=== PATIENT | male | born 1975 | race African-American/Black ===

== ENCOUNTER 2021-08-11 02:21 | Emergency (ER) | payer MEDICAID ==
[~2021-08-11] VITALS: Ht 167.6 cm; Wt 139.0 kg
[~2021-08-11 02:21] MED LIST: [UNRECOGNIZED DRUG - REMARK]; [UNRECOGNIZED DRUG - REMARK]
[2021-08-11] MEDS ORDERED: IBUPROFEN 600MG TABLET PO STA (03:04)
[2021-08-11 03:23] LABS: BASOPHILS % 0.6 % (0.0-2.0); EOSINOPHILS % 1.3 % (0.0-5.0); HEMATOCRIT. 41.8 % (42.0-52.0); MEAN CORPUSCULAR HEMOGLOBIN 28.2 pg (28.0-32.0); MEAN CORPUSCULAR VOLUME 84.4 fL (80.0-94.0); MEAN PLATELET VOLUME 8.7 fl (7.4-10.4); MONOCYTES % 6.6 % (2.0-8.0); NEUTROPHILS % 79.5 % (40.0-76.0); PLATELET 157 x1000/uL (130-400); RED BLOOD CELL COUNT 4.96 mill/uL (4.7-6.1); RED CELL DISTRIBUTION WIDTH 14.4 % (11.6-14.6)
[2021-08-11 03:27] LABS: CHLORIDE 104 mEq/L (98-107)
[2021-08-11] MEDS ORDERED: FUROSEMIDE 40MG TABLET PO ONE (04:30)
[2021-08-11 05:31] VITALS: BP 126/54
== END 2021-08-11 05:32 | disposition home or self-care (01) ==
LOC: ER 02:33
DX: R60.9 Edema, unspecified (principal); I11.0 Hypertensive heart disease with heart failure; I50.9 Heart failure, unspecified; E11.9 Type 2 diabetes mellitus without complications
CPT/HCPCS: 36415; 71045; 80053; 83880; 85025; 93005; 99285

== ENCOUNTER 2021-12-11 11:53 | Inpatient (IN) | payer MEDICAID, OTHER ==
[~2021-12-11] VITALS: Ht 177.8 cm; Wt 132.9 kg
[2021-12-11] MEDS ORDERED: CEFTRIAXONE 1 G PREMIX 50 ML IV ONE (12:45)
[2021-12-11] MEDS ORDERED: VANCOMYCIN 1G PREMIX 200 ML IV ONE (12:45)
[2021-12-11 13:11] LABS: BASOPHILS % 0.5 % (0.0-2.0); EOSINOPHILS % 0.1 % (0.0-5.0); HEMOGLOBIN. 11.4 g/dL (14.0-18.0); LYMPHOCYTES % 16.2 % (20.0-50.0); MEAN CORPUSCULAR HEMOGLOBIN 25.1 pg (28.0-32.0); MEAN CORPUSCULAR VOLUME 79.2 fL (80.0-94.0); MEAN PLATELET VOLUME 8.5 fl (7.4-10.4); MONOCYTES % 8.1 % (2.0-8.0); NEUTROPHILS % 75.1 % (40.0-76.0); PLATELET 170 x1000/uL (130-400); RED BLOOD CELL COUNT 4.55 mill/uL (4.7-6.1); RED CELL DISTRIBUTION WIDTH 18.4 % (11.6-14.6)
[2021-12-11 13:22] LABS: CHLORIDE 94 mEq/L (98-107)
[2021-12-11] MEDS ORDERED: APIXABAN 5 MG TABLET PO SCH (17:00)
[2021-12-11] MEDS ORDERED: PIPERACILLIN/TAZOBACTAM 3.375GM/50ML PREMIX IV ONE (18:30)
[2021-12-11] MEDS ORDERED: DEXTROSE 50% WATER 50ML SYRINGE IV ONE (18:30)
[2021-12-11] MEDS ORDERED: CLINDAMYCIN 900 MG in DEXTROSE 5% WATER 50 ML IV ONE (18:30)
[2021-12-11] MEDS ORDERED: MORPHINE SULFATE 4 MG/ML CPJ (NOT FOR IM USE) IV ONE (18:30)
[2021-12-11] MEDS ORDERED: SODIUM CHLORIDE 0.9% 1,000 ML IV ONE (18:30)
[2021-12-11] MEDS ORDERED: PIPERACILLIN/TAZ 3.375G PREMIX 50 ML IV NR (18:45)
[2021-12-11] MEDS ORDERED: CLINDAMYCIN 900 MG PREMIX 50 ML IV SCH (19:00)
[2021-12-11] MEDS ORDERED: ONDANSETRON HCL 4MG/2ML INJ IV PRN (19:15)
[2021-12-11] MEDS ORDERED: CLONIDINE 0.1MG TABLET PO PRN (19:15)
[2021-12-11] MEDS ORDERED: ACETAMINOPHEN 325MG TABLET PO PRN (19:15)
[2021-12-11] MEDS ORDERED: CLINDAMYCIN IN 0.9 % SOD CHLOR 50 ML IV SCH (19:49)
[2021-12-11] MEDS ORDERED: SODIUM CHLORIDE 23.4% 154 MEQ in DEXT 10% WATER 961.5 ML IV ONE (20:15)
[2021-12-11 20:55] LABS: INR 1.9; PROTHROMBIN TIME 19.2 sec (9.6-11.0)
[2021-12-11] MEDS ORDERED: IOHEXOL-350 100 ML BOTTLE ONE (23:49)
[2021-12-11 23:57] LABS: CLARITY URINE CLOUDY (CLEAR); COLOR URINE ORANGE (YELLOW); KETONES URINE NEGATIVE (NEGATIVE); LEUKOCYTE ESTERASE URINE 1+ (NEGATIVE); NITRITE URINE POSITIVE (NEGATIVE); OCCULT BLOOD URINE NEGATIVE (NEGATIVE); PH URINE 5.5 (4.5-8.0); PROTEIN URINE 1+ (NEGATIVE); SPECIFIC GRAVITY URINE 1.023 (1.005-1.030)
[2021-12-12] VITALS (7 sets, daily range): BP systolic 104–115; BP diastolic 59–74
[2021-12-12 00:19] LABS: *AMPHETAMINES SCREEN URINE NEGATIVE (NEGATIVE); *BARBITURATES SCREEN URINE NEGATIVE (NEGATIVE); *BENZODIAZEPINES SCREEN URINE NEGATIVE (NEGATIVE)
[2021-12-12 00:20] LABS: *COCAINE SCREEN URINE NEGATIVE (NEGATIVE); METHADONE URINE SCREEN NEGATIVE (NEGATIVE); OPIATES URINE SCREEN NEGATIVE (NEGATIVE); PHENCYCLIDINE URINE SCREEN NEGATIVE (NEGATIVE)
[2021-12-12 00:21] LABS: CANNABINOID URINE SCREEN PRESUMTIVE POSITIVE (NEGATIVE)
[2021-12-12] MEDS: HYDROCODONE/ACETAMINOPHEN 10/325MG TABLET PO PRN ×2 (00:27→08:27)
[2021-12-12] MEDS ORDERED: [UNRECOGNIZED DRUG - REMARK] (01:42)
[2021-12-12] MEDS ORDERED: [UNRECOGNIZED DRUG - REMARK] (01:42)
[2021-12-12 07:29] LABS: BASOPHILS % 0.6 % (0.0-2.0); EOSINOPHILS % 0.1 % (0.0-5.0); HEMOGLOBIN. 10.4 g/dL (14.0-18.0); LYMPHOCYTES % 16.5 % (20.0-50.0); MEAN CORPUSCULAR HEMOGLOBIN 24.8 pg (28.0-32.0); MEAN CORPUSCULAR VOLUME 78.7 fL (80.0-94.0); MEAN PLATELET VOLUME 8.9 fl (7.4-10.4); MONOCYTES % 10.3 % (2.0-8.0); NEUTROPHILS % 72.5 % (40.0-76.0); PLATELET 155 x1000/uL (130-400); RED BLOOD CELL COUNT 4.19 mill/uL (4.7-6.1); RED CELL DISTRIBUTION WIDTH 18.7 % (11.6-14.6)
[2021-12-12 07:46] LABS: CHLORIDE 92 mEq/L (98-107)
[2021-12-12] MEDS ORDERED: FUROSEMIDE 40MG/4ML VIAL IVP SCH (09:00)
[2021-12-12] MEDS ORDERED: SODIUM POLYSTYRENE SULFONATE 15 G/60 ML BOT PO NR (10:15)
[2021-12-12 10:42] LABS: BG BASE EXCESS -7.9 mmol/L (-2.0-2.0); BG CARBOXYHEMOGLOBIN 0.8 % (0.5-1.5); BG DEOXYHEMOGLOBIN 7.5 % (0.0-5.0); BG FRACTION INSPIRED OXYGEN 21; BG HCO3 ACT 15.3 mmol/L (22.0-26.0); BG METHEMOGLOBIN 0.3 % (0.0-1.5); BG OXYGEN SATURATION 92.4 % (92.0-98.5); BG OXYHEMOGLOBIN 91.4 % (94.0-97.0); BG PCO2 24.9 mmHg (35.0-45.0); BG PH 7.405 (7.350-7.450); BG PO2 66.2 mmHg (75.0-100.0); BG SAMPLE SITE LEFT BRACHIAL; BG TOTAL HEMOGLOBIN 11.5 g/dL (12.0-18.0); BG VENT MODE ROOM AIR
[2021-12-12 18:02] LABS: CHLORIDE 91 mEq/L (98-107)
[2021-12-12 18:08] LABS: TOTAL IRON BINDING CAPACITY 370 ug/dL (250-450)
[2021-12-12 18:16] LABS: FOLIC ACID (FOLATE) SERUM 16.4 ng/mL (>5.38)
[2021-12-12] MEDS: ENOXAPARIN 80MG/0.8ML SYR SUBCUT SCH (18:42)
[2021-12-12] MEDS: FUROSEMIDE 40MG/4ML VIAL IVP SCH (19:00)
[2021-12-13] VITALS: BP 104/69
[2021-12-13 04:00] VITALS: BP 102/65
[2021-12-13 08:52] VITALS: BP 102/69
[2021-12-13] MEDS ORDERED: LIDOCAINE HCL/PF 1% 10 MG/ML 5ML VIAL ONE (09:09)
[2021-12-13] MEDS: FERROUS SULFATE 325MG TABLET PO SCH ×2 (10:05→17:07)
[2021-12-13] MEDS: FUROSEMIDE 40MG/4ML VIAL IVP SCH ×2 (10:06→17:07)
[2021-12-13] MEDS: ASCORBIC ACID 500 MG TABLET PO SCH (10:06)
[2021-12-13] MEDS ORDERED: IOHEXOL-350 100 ML BOTTLE ONE (11:26)
[2021-12-13] MEDS: IRON SUCROSE COMPLEX 100 MG/5 ML ML IV SCH (11:59)
[2021-12-13 12:00] VITALS: BP 105/56
[2021-12-13] MEDS: ENOXAPARIN 80MG/0.8ML SYR SUBCUT SCH (12:00)
[2021-12-13 13:15] LABS: BASOPHILS % 0.7 % (0.0-2.0); EOSINOPHILS % 0.3 % (0.0-5.0); HEMOGLOBIN. 10.1 g/dL (14.0-18.0); LYMPHOCYTES % 13.4 % (20.0-50.0); MEAN CORPUSCULAR HEMOGLOBIN 25.7 pg (28.0-32.0); MEAN CORPUSCULAR VOLUME 79.1 fL (80.0-94.0); MEAN PLATELET VOLUME 8.8 fl (7.4-10.4); NEUTROPHILS % 76.6 % (40.0-76.0); PLATELET 139 x1000/uL (130-400); RED BLOOD CELL COUNT 3.92 mill/uL (4.7-6.1); RED CELL DISTRIBUTION WIDTH 18.5 % (11.6-14.6)
[2021-12-13 13:19] LABS: INR 2.1; PROTHROMBIN TIME 21.1 sec (9.6-11.0)
[2021-12-13 13:20] LABS: CHLORIDE 92 mEq/L (98-107)
[2021-12-13 13:25] LABS: PHOSPHORUS 2.8 mg/dL (2.5-4.9)
[2021-12-13 13:30] LABS: HDL CHOLESTEROL 9 mg/dL (40-59)
[2021-12-13 13:34] LABS: LDL CHOLESTEROL 57 mg/dL (5-100)
[2021-12-13 13:42] LABS: TOTAL IRON BINDING CAPACITY 336 ug/dL (250-450)
[2021-12-13 14:16] LABS: HEPATITIS B SURFACE ANTIGEN NEGATIVE
[2021-12-13 14:18] LABS: FERRITIN 185 ng/mL (22-322)
[2021-12-13 15:03] LABS: VITAMIN B12 SERUM >2000 pg/mL pg/mL (211-911)
[2021-12-13 16:00] VITALS: BP 102/60
[2021-12-13 20:00] VITALS: BP 91/72
[2021-12-13] MEDS: DOCUSATE SODIUM 100MG CAPSULE PO PRN (20:22)
[2021-12-13] MEDS: LORAZEPAM 0.5MG TABLET PO PRN (20:22)
[2021-12-13] MEDS: HYDROCODONE/ACETAMINOPHEN 5/325MG TABLET PO PRN (20:22)
[2021-12-13] MEDS: IPRATROPIUM/ALBUTEROL 0.5-3(2.5)MG/3ML NEB HHN PRN (21:23)
[2021-12-13] MEDS: ENOXAPARIN 150MG/ML SYR SUBCUT SCH (21:50)
[2021-12-14] VITALS: BP 106/74
[2021-12-14 04:00] VITALS: BP 110/86
[2021-12-14 08:00] VITALS: BP_SYST 88; BP_SYST 92; BP_DIAS 44; BP_DIAS 53
[2021-12-14 08:25] LABS: BASOPHILS % 0.5 % (0.0-2.0); EOSINOPHILS % 0.5 % (0.0-5.0); HEMATOCRIT. 30.9 % (42.0-52.0); LYMPHOCYTES % 23.5 % (20.0-50.0); MEAN CORPUSCULAR HEMOGLOBIN 25.7 pg (28.0-32.0); MONOCYTES % 9.6 % (2.0-8.0); NEUTROPHILS % 65.9 % (40.0-76.0); PLATELET 150 x1000/uL (130-400); RED BLOOD CELL COUNT 3.91 mill/uL (4.7-6.1); RED CELL DISTRIBUTION WIDTH 18.5 % (11.6-14.6)
[2021-12-14 08:34] LABS: CHLORIDE 92 mEq/L (98-107)
[2021-12-14] MEDS: FUROSEMIDE 40MG/4ML VIAL IVP SCH ×2 (08:50→16:47)
[2021-12-14] MEDS: ASCORBIC ACID 500 MG TABLET PO SCH (08:50)
[2021-12-14] MEDS: FERROUS SULFATE 325MG TABLET PO SCH (08:50)
[2021-12-14] MEDS: ENOXAPARIN 150MG/ML SYR SUBCUT SCH ×2 (08:51→21:08)
[2021-12-14 08:54] LABS: PHOSPHORUS 2.7 mg/dL (2.5-4.9)
[2021-12-14] MEDS: IRON SUCROSE COMPLEX 100 MG/5 ML ML IV SCH (11:23)
[2021-12-14 12:00] VITALS: BP 100/65
[2021-12-14] MEDS ORDERED: NALOXONE HCL 0.4MG/ML VIAL IV PRN (14:45)
[2021-12-14 16:00] VITALS: BP 110/70
[2021-12-14] MEDS: CARVEDILOL 3.125 MG TABLET PO SCH (21:00)
[2021-12-15] VITALS: BP 103/66
[2021-12-15 08:00] VITALS: BP 120/76
[2021-12-15 08:08] LABS: HIV SCREEN 4G Non Reactive (Non Reactive)
[2021-12-15] MEDS: CARVEDILOL 3.125 MG TABLET PO SCH ×2 (08:43→21:10)
[2021-12-15] MEDS: LISINOPRIL 2.5MG TABLET PO SCH (08:43)
[2021-12-15] MEDS: ASCORBIC ACID 500 MG TABLET PO SCH (08:44)
[2021-12-15] MEDS: ENOXAPARIN 150MG/ML SYR SUBCUT SCH ×2 (08:44→21:09)
[2021-12-15] MEDS: FUROSEMIDE 40MG/4ML VIAL IVP SCH (08:44)
[2021-12-15] MEDS: IRON SUCROSE COMPLEX 100 MG/5 ML ML IV SCH (11:32)
[2021-12-15 12:00] VITALS: BP 109/66
[2021-12-15 12:06] LABS: BASOPHILS % 0.6 % (0.0-2.0); EOSINOPHILS % 0.3 % (0.0-5.0); HEMATOCRIT. 31.5 % (42.0-52.0); HEMOGLOBIN. 10.1 g/dL (14.0-18.0); LYMPHOCYTES % 13.9 % (20.0-50.0); MEAN CORPUSCULAR HEMOGLOBIN 25.5 pg (28.0-32.0); MEAN CORPUSCULAR VOLUME 79.8 fL (80.0-94.0); MEAN PLATELET VOLUME 9.1 fl (7.4-10.4); NEUTROPHILS % 78.2 % (40.0-76.0); PLATELET 156 x1000/uL (130-400); RED BLOOD CELL COUNT 3.95 mill/uL (4.7-6.1); RED CELL DISTRIBUTION WIDTH 19.1 % (11.6-14.6)
[2021-12-15 12:09] LABS: INR 1.7; PROTHROMBIN TIME 17.4 sec (9.6-11.0)
[2021-12-15 12:10] LABS: CHLORIDE 93 mEq/L (98-107)
[2021-12-15 12:16] LABS: PHOSPHORUS 2.5 mg/dL (2.5-4.9)
[2021-12-15 12:21] LABS: HAPTOGLOBIN <31.0 mg/dL (30-200); T4 FREE 0.91 ng/dL (0.76-1.46)
[2021-12-15] MEDS ORDERED: MAGNESIUM 2 G PREMIX 50 ML IV SCH (14:00)
[2021-12-15 16:00] VITALS: BP 96/54
[2021-12-15 16:20] LABS: SODIUM URINE RANDOM 12 mEq/L
[2021-12-15] MEDS ORDERED: FUROSEMIDE 40MG/4ML VIAL IVP SCH (17:15)
[2021-12-15 20:00] VITALS: BP 135/68
[2021-12-15] MEDS: LORAZEPAM 0.5MG TABLET PO PRN (21:09)
[2021-12-15] MEDS: HYDROCODONE/ACETAMINOPHEN 5/325MG TABLET PO PRN (21:10)
[2021-12-16] VITALS: BP 104/54
[2021-12-16] MEDS: LORAZEPAM 0.5MG TABLET PO PRN (03:31)
[2021-12-16 04:00] VITALS: BP 126/68
[2021-12-16] MEDS: FUROSEMIDE 40MG/4ML VIAL IVP SCH ×2 (06:22→17:23)
[2021-12-16 08:00] VITALS: BP 98/58
[2021-12-16] MEDS: LISINOPRIL 2.5MG TABLET PO SCH (08:38)
[2021-12-16] MEDS: CARVEDILOL 3.125 MG TABLET PO SCH ×2 (08:38→21:00)
[2021-12-16] MEDS: ASCORBIC ACID 500 MG TABLET PO SCH (08:50)
[2021-12-16] MEDS: ENOXAPARIN 150MG/ML SYR SUBCUT SCH ×2 (08:51→21:44)
[2021-12-16 12:00] VITALS: BP 103/50
[2021-12-16 16:00] VITALS: BP 124/68
[2021-12-16 20:00] VITALS: BP 100/66
[2021-12-17] VITALS: BP 107/76
[2021-12-17 04:00] VITALS: BP 113/70
[2021-12-17] MEDS: FUROSEMIDE 40MG/4ML VIAL IVP SCH ×2 (06:16→17:47)
[2021-12-17 06:28] LABS: BASOPHILS % 0.5 % (0.0-2.0); EOSINOPHILS % 0.3 % (0.0-5.0); HEMATOCRIT. 32.5 % (42.0-52.0); HEMOGLOBIN. 10.5 g/dL (14.0-18.0); LYMPHOCYTES % 21.6 % (20.0-50.0); MEAN CORPUSCULAR HEMOGLOBIN 25.8 pg (28.0-32.0); MEAN CORPUSCULAR VOLUME 79.5 fL (80.0-94.0); MONOCYTES % 7.1 % (2.0-8.0); NEUTROPHILS % 70.5 % (40.0-76.0); PLATELET 150 x1000/uL (130-400); RED BLOOD CELL COUNT 4.08 mill/uL (4.7-6.1); RED CELL DISTRIBUTION WIDTH 19.3 % (11.6-14.6)
[2021-12-17 06:37] LABS: INR 1.6; PROTHROMBIN TIME 16.1 sec (9.6-11.0)
[2021-12-17 07:52] LABS: CHLORIDE 91 mEq/L (98-107)
[2021-12-17 08:00] VITALS: BP 106/63
[2021-12-17 08:00] LABS: PHOSPHORUS 2.4 mg/dL (2.5-4.9)
[2021-12-17] MEDS: LISINOPRIL 2.5MG TABLET PO SCH (08:42)
[2021-12-17] MEDS: ASCORBIC ACID 500 MG TABLET PO SCH (08:56)
[2021-12-17] MEDS: ENOXAPARIN 150MG/ML SYR SUBCUT SCH ×2 (08:56→20:42)
[2021-12-17] MEDS: CARVEDILOL 3.125 MG TABLET PO SCH ×2 (08:56→21:00)
[2021-12-17] MEDS: ACETAMINOPHEN 325MG TABLET PO PRN (09:01)
[2021-12-17 12:00] VITALS: BP 114/60
[2021-12-17 16:00] VITALS: BP 110/67
[2021-12-17 20:00] VITALS: BP 103/69
[2021-12-18] VITALS: BP 101/73
[2021-12-18] MEDS: ACETAMINOPHEN 325MG TABLET PO PRN ×2 (03:49→15:25)
[2021-12-18 04:00] VITALS: BP 105/42
[2021-12-18] MEDS: FUROSEMIDE 40MG/4ML VIAL IVP SCH ×2 (06:18→16:25)
[2021-12-18 06:59] LABS: CHLORIDE 89 mEq/L (98-107)
[2021-12-18 07:04] LABS: PHOSPHORUS 2.5 mg/dL (2.5-4.9)
[2021-12-18 07:12] LABS: BASOPHILS % 0.6 % (0.0-2.0); EOSINOPHILS % 0.5 % (0.0-5.0); HEMATOCRIT. 31.8 % (42.0-52.0); HEMOGLOBIN. 10.2 g/dL (14.0-18.0); LYMPHOCYTES % 20.8 % (20.0-50.0); MEAN CORPUSCULAR HEMOGLOBIN 25.8 pg (28.0-32.0); MEAN CORPUSCULAR VOLUME 80.3 fL (80.0-94.0); MEAN PLATELET VOLUME 9.4 fl (7.4-10.4); MONOCYTES % 8.5 % (2.0-8.0); NEUTROPHILS % 69.6 % (40.0-76.0); PLATELET 142 x1000/uL (130-400); RED BLOOD CELL COUNT 3.96 mill/uL (4.7-6.1); RED CELL DISTRIBUTION WIDTH 19.7 % (11.6-14.6)
[2021-12-18 08:00] VITALS: BP 100/51
[2021-12-18] MEDS: IPRATROPIUM/ALBUTEROL 0.5-3(2.5)MG/3ML NEB HHN PRN ×2 (08:12→14:39)
[2021-12-18] MEDS: LISINOPRIL 2.5MG TABLET PO SCH (09:00)
[2021-12-18] MEDS: CARVEDILOL 3.125 MG TABLET PO SCH ×2 (09:00→20:47)
[2021-12-18] MEDS: ASCORBIC ACID 500 MG TABLET PO SCH (09:31)
[2021-12-18] MEDS: ENOXAPARIN 150MG/ML SYR SUBCUT SCH ×2 (09:31→20:46)
[2021-12-18 12:00] VITALS: BP 116/64
[2021-12-18 16:00] VITALS: BP 118/60
[2021-12-18 22:19] LABS: CHLORIDE 91 mEq/L (98-107)
[2021-12-19] VITALS: BP 100/66
[2021-12-19 04:00] VITALS: BP 110/89
[2021-12-19] MEDS: FUROSEMIDE 40MG/4ML VIAL IVP SCH ×2 (06:32→17:53)
[2021-12-19 08:00] VITALS: BP 121/73
[2021-12-19 10:01] LABS: BASOPHILS % 0.8 % (0.0-2.0); EOSINOPHILS % 0.4 % (0.0-5.0); HEMATOCRIT. 33.5 % (42.0-52.0); HEMOGLOBIN. 10.7 g/dL (14.0-18.0); LYMPHOCYTES % 20.3 % (20.0-50.0); MEAN CORPUSCULAR HEMOGLOBIN 25.8 pg (28.0-32.0); MEAN CORPUSCULAR VOLUME 80.5 fL (80.0-94.0); MEAN PLATELET VOLUME 9.2 fl (7.4-10.4); MONOCYTES % 6.7 % (2.0-8.0); NEUTROPHILS % 71.8 % (40.0-76.0); PLATELET 117 x1000/uL (130-400); RED BLOOD CELL COUNT 4.16 mill/uL (4.7-6.1); RED CELL DISTRIBUTION WIDTH 19.9 % (11.6-14.6)
[2021-12-19 10:13] LABS: CHLORIDE 91 mEq/L (98-107)
[2021-12-19 10:20] LABS: PHOSPHORUS 2.2 mg/dL (2.5-4.9)
[2021-12-19] MEDS: ASCORBIC ACID 500 MG TABLET PO SCH (10:31)
[2021-12-19] MEDS: CARVEDILOL 3.125 MG TABLET PO SCH ×2 (10:31→21:06)
[2021-12-19] MEDS: LISINOPRIL 2.5MG TABLET PO SCH (10:31)
[2021-12-19] MEDS: ENOXAPARIN 150MG/ML SYR SUBCUT SCH ×2 (10:41→21:07)
[2021-12-19] MEDS: HYDROCODONE/ACETAMINOPHEN 5/325MG TABLET PO PRN (11:34)
[2021-12-19 12:00] VITALS: BP 116/74
[2021-12-19 16:00] VITALS: BP 107/75
[2021-12-19] MEDS ORDERED: LACTULOSE 20G/30ML UDC PO NR (17:15)
[2021-12-19] MEDS ORDERED: SENNOSIDES 8.6MG TABLET PO PRN (17:15)
[2021-12-19 20:00] VITALS: BP 113/67
[2021-12-20] VITALS: BP 126/86
[2021-12-20 04:00] VITALS: BP 98/70
[2021-12-20] MEDS: FUROSEMIDE 40MG/4ML VIAL IVP SCH ×2 (06:19→07:00)
[2021-12-20 07:36] LABS: BASOPHILS % 0.8 % (0.0-2.0); EOSINOPHILS % 0.7 % (0.0-5.0); HEMATOCRIT. 32.6 % (42.0-52.0); HEMOGLOBIN. 10.2 g/dL (14.0-18.0); LYMPHOCYTES % 25.4 % (20.0-50.0); MEAN CORPUSCULAR HEMOGLOBIN 25.5 pg (28.0-32.0); MEAN CORPUSCULAR VOLUME 81.8 fL (80.0-94.0); MEAN PLATELET VOLUME 9.7 fl (7.4-10.4); MONOCYTES % 8.1 % (2.0-8.0); PLATELET 111 x1000/uL (130-400); RED BLOOD CELL COUNT 3.98 mill/uL (4.7-6.1); RED CELL DISTRIBUTION WIDTH 21.3 % (11.6-14.6)
[2021-12-20 07:42] LABS: CHLORIDE 91 mEq/L (98-107)
[2021-12-20 08:00] VITALS: BP_SYST 106; BP_SYST 118; BP_DIAS 63; BP_DIAS 74
[2021-12-20] MEDS: ENOXAPARIN 150MG/ML SYR SUBCUT SCH ×2 (10:06→21:18)
[2021-12-20] MEDS: ASCORBIC ACID 500 MG TABLET PO SCH (10:06)
[2021-12-20] MEDS: DOCUSATE SODIUM 250MG CAPSULE PO SCH (10:07)
[2021-12-20] MEDS: LISINOPRIL 2.5MG TABLET PO SCH (10:07)
[2021-12-20] MEDS: CARVEDILOL 3.125 MG TABLET PO SCH ×2 (10:07→21:00)
[2021-12-20 12:00] VITALS: BP 96/48
[2021-12-20 16:00] VITALS: BP 95/50
[2021-12-20 19:00] LABS: BG BASE EXCESS 0.3 mmol/L (-2.0-2.0); BG CARBOXYHEMOGLOBIN 1.1 % (0.5-1.5); BG DEOXYHEMOGLOBIN 2.7 % (0.0-5.0); BG FRACTION INSPIRED OXYGEN 21; BG HCO3 ACT 24.3 mmol/L (22.0-26.0); BG METHEMOGLOBIN 0.3 % (0.0-1.5); BG OXYGEN SATURATION 97.3 % (92.0-98.5); BG OXYHEMOGLOBIN 95.9 % (94.0-97.0); BG PCO2 36.8 mmHg (35.0-45.0); BG PH 7.437 (7.350-7.450); BG PO2 90.1 mmHg (75.0-100.0); BG SAMPLE SITE LEFT RADIAL; BG TOTAL HEMOGLOBIN 11.9 g/dL (12.0-18.0); BG VENT MODE ROOM AIR
[2021-12-20 20:00] VITALS: BP 92/50
[2021-12-20] MEDS: HYDROCODONE/ACETAMINOPHEN 10/325MG TABLET PO PRN (21:19)
[2021-12-21] VITALS: BP 94/42
[2021-12-21 04:00] VITALS: BP 95/65
[2021-12-21] MEDS: FUROSEMIDE 40MG/4ML VIAL IVP SCH ×2 (06:34→17:24)
[2021-12-21 07:59] LABS: BASOPHILS % 0.8 % (0.0-2.0); EOSINOPHILS % 0.4 % (0.0-5.0); HEMATOCRIT. 31.9 % (42.0-52.0); HEMOGLOBIN. 10.1 g/dL (14.0-18.0); LYMPHOCYTES % 25.1 % (20.0-50.0); MEAN CORPUSCULAR HEMOGLOBIN 25.7 pg (28.0-32.0); MEAN CORPUSCULAR VOLUME 81.7 fL (80.0-94.0); MEAN PLATELET VOLUME 10.2 fl (7.4-10.4); MONOCYTES % 8.2 % (2.0-8.0); NEUTROPHILS % 65.5 % (40.0-76.0); PLATELET 102 x1000/uL (130-400); RED BLOOD CELL COUNT 3.91 mill/uL (4.7-6.1); RED CELL DISTRIBUTION WIDTH 23.1 % (11.6-14.6)
[2021-12-21 08:00] VITALS: BP 106/58
[2021-12-21 08:10] LABS: CHLORIDE 89 mEq/L (98-107)
[2021-12-21 08:22] LABS: PHOSPHORUS 2.4 mg/dL (2.5-4.9)
[2021-12-21] MEDS: DOCUSATE SODIUM 250MG CAPSULE PO SCH (09:00)
[2021-12-21] MEDS: CARVEDILOL 3.125 MG TABLET PO SCH ×2 (09:00→21:00)
[2021-12-21] MEDS: LISINOPRIL 2.5MG TABLET PO SCH (09:00)
[2021-12-21] MEDS ORDERED: SODIUM PHOS,M-BASIC-D-BASIC 15 MM in DEXT 5% WATER 245 ML IV NR (10:00)
[2021-12-21] MEDS: DOCUSATE SODIUM 100MG CAPSULE PO PRN (10:04)
[2021-12-21] MEDS: ASCORBIC ACID 500 MG TABLET PO SCH (10:04)
[2021-12-21] MEDS: ENOXAPARIN 150MG/ML SYR SUBCUT SCH ×2 (10:05→21:06)
[2021-12-21 10:18] LABS: PLATELET ESTIMATE SLIGHTLY DECREASED
[2021-12-21 12:00] VITALS: BP 112/64
[2021-12-21 16:00] VITALS: BP 154/101
[2021-12-21 20:00] VITALS: BP 96/64
[2021-12-21] MEDS: HYDROCODONE/ACETAMINOPHEN 10/325MG TABLET PO PRN (21:07)
[2021-12-22] VITALS (7 sets, daily range): BP systolic 97–143; BP diastolic 55–98
[2021-12-22] MEDS: FUROSEMIDE 40MG/4ML VIAL IVP SCH (07:15)
[2021-12-22 07:39] LABS: BASOPHILS % 0.9 % (0.0-2.0); EOSINOPHILS % 0.3 % (0.0-5.0); HEMATOCRIT. 34.9 % (42.0-52.0); HEMOGLOBIN. 11.1 g/dL (14.0-18.0); LYMPHOCYTES % 23.9 % (20.0-50.0); MEAN CORPUSCULAR HEMOGLOBIN 25.8 pg (28.0-32.0); MEAN CORPUSCULAR VOLUME 81.1 fL (80.0-94.0); MEAN PLATELET VOLUME 9.8 fl (7.4-10.4); MONOCYTES % 11.6 % (2.0-8.0); NEUTROPHILS % 63.3 % (40.0-76.0); PLATELET 136 x1000/uL (130-400); RED CELL DISTRIBUTION WIDTH 23.5 % (11.6-14.6)
[2021-12-22 07:46] LABS: CHLORIDE 89 mEq/L (98-107)
[2021-12-22 07:52] LABS: PHOSPHORUS 3.2 mg/dL (2.5-4.9)
[2021-12-22] MEDS: CARVEDILOL 3.125 MG TABLET PO SCH ×2 (10:09→21:42)
[2021-12-22] MEDS: ASCORBIC ACID 500 MG TABLET PO SCH (10:09)
[2021-12-22] MEDS: LISINOPRIL 2.5MG TABLET PO SCH (10:10)
[2021-12-22] MEDS: ENOXAPARIN 150MG/ML SYR SUBCUT SCH ×2 (10:10→21:43)
[2021-12-22] MEDS: DOCUSATE SODIUM 250MG CAPSULE PO SCH (10:12)
[2021-12-22] MEDS: HYDROCODONE/ACETAMINOPHEN 5/325MG TABLET PO PRN (11:37)
[2021-12-22] MEDS ORDERED: LIDOCAINE HCL 1% 10 MG/ML 10ML VIAL IJ NR (12:00)
[2021-12-22] MEDS ORDERED: BUPIVACAINE HCL/PF 0.25% (2.5MG/ML) 10ML INFIL NR (12:00)
[2021-12-22] MEDS: FUROSEMIDE 40MG TABLET PO SCH (16:39)
[2021-12-23] VITALS: BP 133/110
[2021-12-23 04:00] VITALS: BP 109/53
[2021-12-23 07:46] LABS: BASOPHILS % 0.9 % (0.0-2.0); EOSINOPHILS % 0.5 % (0.0-5.0); HEMOGLOBIN. 11.5 g/dL (14.0-18.0); LYMPHOCYTES % 29.8 % (20.0-50.0); MEAN CORPUSCULAR VOLUME 81.8 fL (80.0-94.0); MEAN PLATELET VOLUME 10.2 fl (7.4-10.4); MONOCYTES % 10.2 % (2.0-8.0); NEUTROPHILS % 58.6 % (40.0-76.0); PLATELET 140 x1000/uL (130-400)
[2021-12-23 08:00] VITALS: BP 99/75
[2021-12-23 08:04] LABS: CHLORIDE 88 mEq/L (98-107)
[2021-12-23] MEDS: DOCUSATE SODIUM 250MG CAPSULE PO SCH (08:51)
[2021-12-23] MEDS: ASCORBIC ACID 500 MG TABLET PO SCH (08:51)
[2021-12-23] MEDS: FUROSEMIDE 40MG TABLET PO SCH ×2 (08:51→17:15)
[2021-12-23] MEDS: LISINOPRIL 2.5MG TABLET PO SCH (08:52)
[2021-12-23] MEDS: ENOXAPARIN 150MG/ML SYR SUBCUT SCH ×2 (08:52→21:31)
[2021-12-23] MEDS: CARVEDILOL 3.125 MG TABLET PO SCH ×2 (08:52→21:31)
[2021-12-23 12:00] VITALS: BP 93/55
[2021-12-23] MEDS: LORAZEPAM 1MG TABLET PO PRN (14:01)
[2021-12-23 16:00] VITALS: BP 101/69
[2021-12-23 20:00] VITALS: BP 124/61
[2021-12-24] VITALS: BP 120/65
[2021-12-24 04:00] VITALS: BP 125/67
[2021-12-24] MEDS: FUROSEMIDE 40MG TABLET PO SCH ×2 (06:52→17:20)
[2021-12-24 08:00] VITALS: BP 97/64
[2021-12-24] MEDS: LISINOPRIL 2.5MG TABLET PO SCH (08:51)
[2021-12-24] MEDS: CARVEDILOL 3.125 MG TABLET PO SCH ×2 (08:51→21:00)
[2021-12-24] MEDS: ENOXAPARIN 150MG/ML SYR SUBCUT SCH ×2 (08:56→21:05)
[2021-12-24] MEDS: DOCUSATE SODIUM 250MG CAPSULE PO SCH (08:56)
[2021-12-24] MEDS: ASCORBIC ACID 500 MG TABLET PO SCH (08:56)
[2021-12-24 09:28] LABS: BASOPHILS % 0.6 % (0.0-2.0); EOSINOPHILS % 0.1 % (0.0-5.0); HEMATOCRIT. 32.9 % (42.0-52.0); HEMOGLOBIN. 10.7 g/dL (14.0-18.0); LYMPHOCYTES % 18.6 % (20.0-50.0); MEAN CORPUSCULAR HEMOGLOBIN 26.4 pg (28.0-32.0); MEAN PLATELET VOLUME 9.6 fl (7.4-10.4); MONOCYTES % 7.9 % (2.0-8.0); NEUTROPHILS % 72.8 % (40.0-76.0); PLATELET 130 x1000/uL (130-400); RED BLOOD CELL COUNT 4.06 mill/uL (4.7-6.1); RED CELL DISTRIBUTION WIDTH 24.4 % (11.6-14.6)
[2021-12-24 09:43] LABS: CHLORIDE 91 mEq/L (98-107)
[2021-12-24 09:49] LABS: PHOSPHORUS 1.7 mg/dL (2.5-4.9)
[2021-12-24 09:52] LABS: INR 1.6; PROTHROMBIN TIME 16.9 sec (9.6-11.0)
[2021-12-24] MEDS: DEMECLOCYCLINE HCL 300MG TABLET PO SCH ×2 (11:02→17:20)
[2021-12-24 12:30] VITALS: BP 103/53
[2021-12-24] MEDS: LORAZEPAM 1MG TABLET PO PRN ×2 (12:53→21:10)
[2021-12-24 16:00] VITALS: BP 105/68
[2021-12-24 20:00] VITALS: BP 98/66
[2021-12-25] VITALS (7 sets, daily range): BP systolic 92–108; BP diastolic 51–80
[2021-12-25] MEDS: FUROSEMIDE 40MG TABLET PO SCH ×2 (06:22→18:39)
[2021-12-25] MEDS: DEMECLOCYCLINE HCL 300MG TABLET PO SCH ×2 (06:22→18:39)
[2021-12-25 06:52] LABS: CHLORIDE 91 mEq/L (98-107)
[2021-12-25] MEDS: CARVEDILOL 3.125 MG TABLET PO SCH ×2 (08:46→21:00)
[2021-12-25] MEDS: LISINOPRIL 2.5MG TABLET PO SCH (08:47)
[2021-12-25] MEDS: ENOXAPARIN 150MG/ML SYR SUBCUT SCH ×2 (09:06→21:00)
[2021-12-25] MEDS: DOCUSATE SODIUM 250MG CAPSULE PO SCH (09:06)
[2021-12-25] MEDS: ASCORBIC ACID 500 MG TABLET PO SCH (09:06)
[2021-12-25] MEDS ORDERED: POTASSIUM PHOS,M-BASIC-D-BASIC 30 MMOL in SODIUM CHLORIDE 0.9% 500 ML IV SCH (10:00)
[2021-12-25] MEDS ORDERED: COR3 PO ×2 (16:34)
[2021-12-25] MEDS ORDERED: POTA20TA82 MT ×2 (16:34)
[2021-12-25] MEDS ORDERED: FURO40TA5 PO ×2 (16:34)
[2021-12-25] MEDS ORDERED: LISI2.5T47 PO ×2 (16:34)
[2021-12-26] VITALS: BP 97/63
[2021-12-26 04:00] VITALS: BP 101/67
[2021-12-26] MEDS: DEMECLOCYCLINE HCL 300MG TABLET PO SCH ×2 (06:29→17:51)
[2021-12-26] MEDS: FUROSEMIDE 40MG TABLET PO SCH ×2 (06:29→17:15)
[2021-12-26 08:00] VITALS: BP 95/62
[2021-12-26 08:37] LABS: CHLORIDE 90 mEq/L (98-107)
[2021-12-26 08:43] LABS: PHOSPHORUS 2.2 mg/dL (2.5-4.9)
[2021-12-26] MEDS: CARVEDILOL 3.125 MG TABLET PO SCH ×2 (09:00→21:28)
[2021-12-26] MEDS: LISINOPRIL 2.5MG TABLET PO SCH (09:00)
[2021-12-26] MEDS ORDERED: POTASSIUM-SODIUM PHOSPHATE POWDER PACKET PO SCH (09:00)
[2021-12-26] MEDS: DOCUSATE SODIUM 250MG CAPSULE PO SCH (09:13)
[2021-12-26] MEDS: ENOXAPARIN 150MG/ML SYR SUBCUT SCH ×2 (09:13→21:27)
[2021-12-26] MEDS: ASCORBIC ACID 500 MG TABLET PO SCH (09:13)
[2021-12-26 12:00] VITALS: BP 101/70
[2021-12-26 16:00] VITALS: BP 97/62
[2021-12-26 20:00] VITALS: BP 116/80
[2021-12-27] VITALS: BP 104/77
[2021-12-27 04:00] VITALS: BP 103/56
[2021-12-27] MEDS: FUROSEMIDE 40MG TABLET PO SCH ×2 (06:22→18:05)
[2021-12-27] MEDS: DEMECLOCYCLINE HCL 300MG TABLET PO SCH ×2 (06:22→18:05)
[2021-12-27 06:34] LABS: CHLORIDE 93 mEq/L (98-107)
[2021-12-27 07:01] LABS: BASOPHILS % 0.8 % (0.0-2.0); EOSINOPHILS % 4.7 % (0.0-5.0); HEMATOCRIT. 35.7 % (42.0-52.0); HEMOGLOBIN. 11.7 g/dL (14.0-18.0); LYMPHOCYTES % 23.8 % (20.0-50.0); MEAN CORPUSCULAR HEMOGLOBIN 26.6 pg (28.0-32.0); MEAN CORPUSCULAR VOLUME 81.1 fL (80.0-94.0); NEUTROPHILS % 60.7 % (40.0-76.0)
[2021-12-27 07:47] LABS: PLATELET 123 x1000/uL (130-400)
[2021-12-27 07:48] LABS: MEAN PLATELET VOLUME 10.9 fl (7.4-10.4)
[2021-12-27 08:00] VITALS: BP 98/65
[2021-12-27] MEDS: LISINOPRIL 2.5MG TABLET PO SCH (09:00)
[2021-12-27] MEDS: CARVEDILOL 3.125 MG TABLET PO SCH ×2 (09:00→21:30)
[2021-12-27] MEDS: ENOXAPARIN 150MG/ML SYR SUBCUT SCH ×2 (09:43→21:29)
[2021-12-27] MEDS: FERROUS SULFATE 325MG TABLET PO SCH (09:44)
[2021-12-27] MEDS: ASCORBIC ACID 500 MG TABLET PO SCH (09:44)
[2021-12-27] MEDS: DOCUSATE SODIUM 250MG CAPSULE PO SCH (09:45)
[2021-12-27 12:00] VITALS: BP 102/64
[2021-12-27] MEDS ORDERED: SODIUM CHLORIDE 1000MG TABLET PO SCH (13:00)
[2021-12-27 16:00] VITALS: BP 100/59
[2021-12-27 20:00] VITALS: BP 126/72
[2021-12-27] MEDS: LORAZEPAM 1MG TABLET PO PRN (21:30)
[2021-12-28] VITALS: BP 124/80
[2021-12-28 04:00] VITALS: BP 111/69
[2021-12-28] MEDS: DEMECLOCYCLINE HCL 300MG TABLET PO SCH ×2 (06:14→18:57)
[2021-12-28 06:18] LABS: BASOPHILS % 0.6 % (0.0-2.0); EOSINOPHILS % 0.2 % (0.0-5.0); HEMATOCRIT. 34.4 % (42.0-52.0); LYMPHOCYTES % 22.7 % (20.0-50.0); MEAN CORPUSCULAR HEMOGLOBIN 26.1 pg (28.0-32.0); MEAN CORPUSCULAR VOLUME 81.1 fL (80.0-94.0); MEAN PLATELET VOLUME 10.4 fl (7.4-10.4); MONOCYTES % 12.3 % (2.0-8.0); NEUTROPHILS % 64.2 % (40.0-76.0); PLATELET 132 x1000/uL (130-400); RED BLOOD CELL COUNT 4.24 mill/uL (4.7-6.1)
[2021-12-28 06:26] LABS: CHLORIDE 93 mEq/L (98-107)
[2021-12-28 06:37] LABS: PHOSPHORUS 2.4 mg/dL (2.5-4.9)
[2021-12-28 08:00] VITALS: BP 96/60
[2021-12-28] MEDS: CARVEDILOL 3.125 MG TABLET PO SCH ×2 (09:00→21:00)
[2021-12-28] MEDS: LISINOPRIL 2.5MG TABLET PO SCH (09:00)
[2021-12-28] MEDS: DOCUSATE SODIUM 250MG CAPSULE PO SCH (09:00)
[2021-12-28] MEDS: DOCUSATE SODIUM 100MG CAPSULE PO PRN (10:30)
[2021-12-28] MEDS: FUROSEMIDE 40MG TABLET PO SCH ×2 (10:32→18:56)
[2021-12-28] MEDS: FERROUS SULFATE 325MG TABLET PO SCH (10:33)
[2021-12-28] MEDS: LORAZEPAM 1MG TABLET PO PRN (10:33)
[2021-12-28] MEDS: ASCORBIC ACID 500 MG TABLET PO SCH (10:34)
[2021-12-28] MEDS: ENOXAPARIN 150MG/ML SYR SUBCUT SCH ×2 (10:34→21:46)
[2021-12-28] MEDS: SODIUM HYPOCHLORITE (0.25%) 480ML SOLUTION (HALF STRENGTH) TOP SCH (11:43)
[2021-12-28 12:25] VITALS: BP 104/61
[2021-12-28 16:00] VITALS: BP 100/62
[2021-12-28] MEDS ORDERED: LIDOCAINE HCL 1% 20ML VIAL (Pyxis) INJ INFIL NR (17:30)
[2021-12-28] MEDS ORDERED: BUPIVACAINE HCL/PF 0.25% (2.5MG/ML) 10ML INFIL NR (17:30)
[2021-12-28] MEDS ORDERED: LIDOCAINE HCL 1% 10 MG/ML 10ML VIAL INJ SCH (17:45)
[2021-12-28] MEDS: POTASSIUM-SODIUM PHOSPHATE POWDER PACKET PO SCH (18:56)
[2021-12-28 20:00] VITALS: BP 105/51
[2021-12-28] MEDS ORDERED: ZOLPIDEM TARTRATE 5MG TABLET PO NR (21:00)
[2021-12-29] VITALS: BP 109/52
[2021-12-29 04:00] VITALS: BP 95/56
[2021-12-29 06:14] LABS: CHLORIDE 95 mEq/L (98-107)
[2021-12-29] MEDS: DEMECLOCYCLINE HCL 300MG TABLET PO SCH (06:44)
[2021-12-29] MEDS: FUROSEMIDE 40MG TABLET PO SCH ×2 (06:45→09:22)
[2021-12-29 07:11] LABS: BASOPHILS % 0.3 % (0.0-2.0); EOSINOPHILS % 0.2 % (0.0-5.0); HEMATOCRIT. 33.7 % (42.0-52.0); HEMOGLOBIN. 10.6 g/dL (14.0-18.0); LYMPHOCYTES % 19.5 % (20.0-50.0); MEAN CORPUSCULAR HEMOGLOBIN 25.6 pg (28.0-32.0); MEAN CORPUSCULAR VOLUME 81.3 fL (80.0-94.0); MEAN PLATELET VOLUME 10.6 fl (7.4-10.4); MONOCYTES % 10.1 % (2.0-8.0); NEUTROPHILS % 69.9 % (40.0-76.0); PLATELET 128 x1000/uL (130-400); RED BLOOD CELL COUNT 4.15 mill/uL (4.7-6.1); RED CELL DISTRIBUTION WIDTH 24.8 % (11.6-14.6)
[2021-12-29 07:35] VITALS: BP 100/63
[2021-12-29] MEDS: LISINOPRIL 2.5MG TABLET PO SCH (08:13)
[2021-12-29] MEDS: CARVEDILOL 3.125 MG TABLET PO SCH (08:13)
[2021-12-29] MEDS: DOCUSATE SODIUM 250MG CAPSULE PO SCH (09:00)
[2021-12-29] MEDS: ENOXAPARIN 150MG/ML SYR SUBCUT SCH ×2 (09:22→21:57)
[2021-12-29] MEDS: DOCUSATE SODIUM 100MG CAPSULE PO PRN (09:22)
[2021-12-29] MEDS: ASCORBIC ACID 500 MG TABLET PO SCH (09:22)
[2021-12-29] MEDS: LORAZEPAM 1MG TABLET PO PRN ×2 (09:23→15:37)
[2021-12-29] MEDS: FERROUS SULFATE 325MG TABLET PO SCH (09:23)
[2021-12-29] MEDS: POTASSIUM-SODIUM PHOSPHATE POWDER PACKET PO SCH ×2 (09:26→17:35)
[2021-12-29] MEDS: SODIUM HYPOCHLORITE (0.25%) 480ML SOLUTION (HALF STRENGTH) TOP SCH (09:27)
[2021-12-29 12:56] VITALS: BP 95/63
[2021-12-29 15:40] VITALS: BP 90/63
[2021-12-29 20:00] VITALS: BP 93/71
[2021-12-30] VITALS: BP 97/77
[2021-12-30 04:00] VITALS: BP 92/53
[2021-12-30] MEDS: FUROSEMIDE 40MG TABLET PO SCH ×2 (06:41→17:55)
[2021-12-30 08:00] VITALS: BP 86/58
[2021-12-30] MEDS: ASCORBIC ACID 500 MG TABLET PO SCH (09:01)
[2021-12-30] MEDS: POTASSIUM-SODIUM PHOSPHATE POWDER PACKET PO SCH ×2 (09:01→17:55)
[2021-12-30] MEDS: FERROUS SULFATE 325MG TABLET PO SCH (09:01)
[2021-12-30] MEDS: SODIUM HYPOCHLORITE (0.25%) 480ML SOLUTION (HALF STRENGTH) TOP SCH (09:01)
[2021-12-30] MEDS: ENOXAPARIN 150MG/ML SYR SUBCUT SCH ×2 (09:03→22:27)
[2021-12-30] MEDS: DOCUSATE SODIUM 250MG CAPSULE PO SCH (09:06)
[2021-12-30 12:00] VITALS: BP 92/64
[2021-12-30 16:00] VITALS: BP 91/62
[2021-12-30 20:00] VITALS: BP 93/66
[2021-12-31] VITALS: BP 95/62
[2021-12-31 04:00] VITALS: BP 98/64
[2021-12-31] MEDS: ACETAMINOPHEN 325MG TABLET PO PRN (05:17)
[2021-12-31] MEDS: LORAZEPAM 1MG TABLET PO PRN (05:18)
[2021-12-31] MEDS: FUROSEMIDE 40MG TABLET PO SCH ×2 (07:13→17:34)
[2021-12-31 08:00] VITALS: BP 102/70
[2021-12-31] MEDS: SODIUM HYPOCHLORITE (0.25%) 480ML SOLUTION (HALF STRENGTH) TOP SCH (09:00)
[2021-12-31] MEDS: DOCUSATE SODIUM 250MG CAPSULE PO SCH (09:00)
[2021-12-31] MEDS: FERROUS SULFATE 325MG TABLET PO SCH (09:30)
[2021-12-31] MEDS: POTASSIUM-SODIUM PHOSPHATE POWDER PACKET PO SCH ×2 (09:30→17:34)
[2021-12-31] MEDS: ASCORBIC ACID 500 MG TABLET PO SCH (09:30)
[2021-12-31] MEDS: DOCUSATE SODIUM 100MG CAPSULE PO PRN (09:30)
[2021-12-31] MEDS: ENOXAPARIN 150MG/ML SYR SUBCUT SCH ×2 (09:31→22:16)
[2021-12-31 12:00] VITALS: BP 91/66
[2021-12-31 16:00] VITALS: BP 96/62
[2021-12-31 19:49] LABS: BASOPHILS % 1.3 % (0.0-2.0); EOSINOPHILS % 0.5 % (0.0-5.0); HEMATOCRIT. 33.9 % (42.0-52.0); HEMOGLOBIN. 10.7 g/dL (14.0-18.0); LYMPHOCYTES % 26.9 % (20.0-50.0); MEAN CORPUSCULAR HEMOGLOBIN 26.3 pg (28.0-32.0); MEAN CORPUSCULAR VOLUME 83.2 fL (80.0-94.0); MEAN PLATELET VOLUME 10.5 fl (7.4-10.4); MONOCYTES % 9.7 % (2.0-8.0); NEUTROPHILS % 61.6 % (40.0-76.0); PLATELET 130 x1000/uL (130-400); RED BLOOD CELL COUNT 4.08 mill/uL (4.7-6.1); RED CELL DISTRIBUTION WIDTH 25.2 % (11.6-14.6)
[2021-12-31 20:00] VITALS: BP 95/52
[2021-12-31 20:01] LABS: CHLORIDE 91 mEq/L (98-107)
[2021-12-31 20:09] LABS: PHOSPHORUS 3.8 mg/dL (2.5-4.9)
[2022-01-01] VITALS: BP 103/88
[2022-01-01 04:00] VITALS: BP 98/54
[2022-01-01] MEDS: FUROSEMIDE 40MG TABLET PO SCH ×2 (06:20→17:50)
[2022-01-01 08:00] VITALS: BP 93/67
[2022-01-01 08:07] LABS: BASOPHILS % 1.1 % (0.0-2.0); EOSINOPHILS % 0.4 % (0.0-5.0); HEMATOCRIT. 34.5 % (42.0-52.0); HEMOGLOBIN. 10.8 g/dL (14.0-18.0); LYMPHOCYTES % 28.4 % (20.0-50.0); MEAN CORPUSCULAR HEMOGLOBIN 25.7 pg (28.0-32.0); MEAN CORPUSCULAR VOLUME 81.9 fL (80.0-94.0); MONOCYTES % 9.5 % (2.0-8.0); NEUTROPHILS % 60.6 % (40.0-76.0); PLATELET 133 x1000/uL (130-400); RED BLOOD CELL COUNT 4.21 mill/uL (4.7-6.1); RED CELL DISTRIBUTION WIDTH 25.2 % (11.6-14.6)
[2022-01-01 08:17] LABS: INR 1.8; PROTHROMBIN TIME 18.7 sec (9.6-11.0)
[2022-01-01 08:31] LABS: CHLORIDE 92 mEq/L (98-107)
[2022-01-01] MEDS: FERROUS SULFATE 325MG TABLET PO SCH (08:38)
[2022-01-01] MEDS: ASCORBIC ACID 500 MG TABLET PO SCH (08:39)
[2022-01-01] MEDS: POTASSIUM-SODIUM PHOSPHATE POWDER PACKET PO SCH ×2 (08:39→17:50)
[2022-01-01] MEDS: ENOXAPARIN 150MG/ML SYR SUBCUT SCH ×2 (08:39→21:00)
[2022-01-01] MEDS: DOCUSATE SODIUM 100MG CAPSULE PO PRN (08:39)
[2022-01-01 08:43] LABS: PHOSPHORUS 3.3 mg/dL (2.5-4.9)
[2022-01-01] MEDS: DOCUSATE SODIUM 250MG CAPSULE PO SCH (08:44)
[2022-01-01] MEDS: SODIUM HYPOCHLORITE (0.25%) 480ML SOLUTION (HALF STRENGTH) TOP SCH (08:46)
[2022-01-01 12:00] VITALS: BP 120/70
[2022-01-01 16:00] VITALS: BP 127/67
[2022-01-01] MEDS: DEMECLOCYCLINE HCL 300MG TABLET PO SCH (17:50)
[2022-01-01 20:00] VITALS: BP 100/60
[2022-01-02] VITALS: BP 98/67
[2022-01-02 04:00] VITALS: BP 98/67
[2022-01-02] MEDS: DEMECLOCYCLINE HCL 300MG TABLET PO SCH ×2 (05:47→17:33)
[2022-01-02] MEDS: FUROSEMIDE 40MG TABLET PO SCH ×2 (05:48→17:32)
[2022-01-02 08:00] VITALS: BP 137/84
[2022-01-02] MEDS: ENOXAPARIN 150MG/ML SYR SUBCUT SCH ×2 (09:00→20:33)
[2022-01-02] MEDS: FERROUS SULFATE 325MG TABLET PO SCH (09:28)
[2022-01-02] MEDS: DOCUSATE SODIUM 250MG CAPSULE PO SCH (09:28)
[2022-01-02] MEDS: ASCORBIC ACID 500 MG TABLET PO SCH (09:28)
[2022-01-02] MEDS: POTASSIUM-SODIUM PHOSPHATE POWDER PACKET PO SCH ×2 (09:28→17:32)
[2022-01-02] MEDS: SODIUM HYPOCHLORITE (0.25%) 480ML SOLUTION (HALF STRENGTH) TOP SCH (09:32)
[2022-01-02 12:00] VITALS: BP 113/66
[2022-01-02 12:03] LABS: BASOPHILS % 1.3 % (0.0-2.0); EOSINOPHILS % 0.5 % (0.0-5.0); HEMATOCRIT. 37.5 % (42.0-52.0); HEMOGLOBIN. 11.7 g/dL (14.0-18.0); LYMPHOCYTES % 24.9 % (20.0-50.0); MEAN CORPUSCULAR HEMOGLOBIN 25.9 pg (28.0-32.0); MEAN PLATELET VOLUME 10.8 fl (7.4-10.4); MONOCYTES % 8.8 % (2.0-8.0); NEUTROPHILS % 64.5 % (40.0-76.0); PLATELET 142 x1000/uL (130-400); RED BLOOD CELL COUNT 4.52 mill/uL (4.7-6.1)
[2022-01-02 12:09] LABS: CHLORIDE 93 mEq/L (98-107)
[2022-01-02 12:15] LABS: PHOSPHORUS 3.2 mg/dL (2.5-4.9)
[2022-01-02 12:28] LABS: INR 1.7; PROTHROMBIN TIME 17.1 sec (9.6-11.0)
[2022-01-02 16:00] VITALS: BP 90/64
[2022-01-02 20:00] VITALS: BP 92/61
[2022-01-03] VITALS: BP 99/63
[2022-01-03 04:00] VITALS: BP 99/55
[2022-01-03] MEDS: DEMECLOCYCLINE HCL 300MG TABLET PO SCH ×2 (06:18→18:26)
[2022-01-03] MEDS: FUROSEMIDE 40MG TABLET PO SCH (06:18)
[2022-01-03 08:00] VITALS: BP 98/62
[2022-01-03] MEDS: POTASSIUM-SODIUM PHOSPHATE POWDER PACKET PO SCH ×2 (08:07→18:26)
[2022-01-03] MEDS: ENOXAPARIN 150MG/ML SYR SUBCUT SCH ×2 (08:07→20:45)
[2022-01-03] MEDS: FERROUS SULFATE 325MG TABLET PO SCH (08:07)
[2022-01-03] MEDS: ASCORBIC ACID 500 MG TABLET PO SCH (08:07)
[2022-01-03] MEDS: DOCUSATE SODIUM 250MG CAPSULE PO SCH (08:08)
[2022-01-03] MEDS: SODIUM HYPOCHLORITE (0.25%) 480ML SOLUTION (HALF STRENGTH) TOP SCH (08:08)
[2022-01-03 12:00] VITALS: BP 98/62
[2022-01-03 16:00] VITALS: BP 102/69
[2022-01-03 20:00] VITALS: BP 98/63
[2022-01-03 20:33] LABS: BASOPHILS % 1.1 % (0.0-2.0); EOSINOPHILS % 0.5 % (0.0-5.0); HEMOGLOBIN. 10.4 g/dL (14.0-18.0); MEAN CORPUSCULAR HEMOGLOBIN 26.2 pg (28.0-32.0); MEAN CORPUSCULAR VOLUME 83.5 fL (80.0-94.0); MEAN PLATELET VOLUME 11.5 fl (7.4-10.4); NEUTROPHILS % 70.4 % (40.0-76.0); PLATELET 133 x1000/uL (130-400); RED BLOOD CELL COUNT 3.96 mill/uL (4.7-6.1); RED CELL DISTRIBUTION WIDTH 25.5 % (11.6-14.6)
[2022-01-03 20:39] LABS: INR 1.7; PROTHROMBIN TIME 17.1 sec (9.6-11.0)
[2022-01-03 20:47] LABS: CHLORIDE 95 mEq/L (98-107)
[2022-01-03 20:53] LABS: PHOSPHORUS 2.9 mg/dL (2.5-4.9)
[2022-01-04] VITALS: BP 96/64
[2022-01-04 04:00] VITALS: BP 98/62
[2022-01-04] MEDS: DEMECLOCYCLINE HCL 300MG TABLET PO SCH ×2 (05:23→18:00)
[2022-01-04 08:00] VITALS: BP 110/65
[2022-01-04] MEDS: ENOXAPARIN 150MG/ML SYR SUBCUT SCH ×2 (09:00→20:31)
[2022-01-04] MEDS: DOCUSATE SODIUM 250MG CAPSULE PO SCH (10:38)
[2022-01-04] MEDS: POTASSIUM-SODIUM PHOSPHATE POWDER PACKET PO SCH ×2 (10:38→17:00)
[2022-01-04] MEDS: FERROUS SULFATE 325MG TABLET PO SCH (10:38)
[2022-01-04] MEDS: ASCORBIC ACID 500 MG TABLET PO SCH (10:38)
[2022-01-04] MEDS: FUROSEMIDE 40MG TABLET PO SCH (10:49)
[2022-01-04] MEDS: SODIUM HYPOCHLORITE (0.25%) 480ML SOLUTION (HALF STRENGTH) TOP SCH (10:49)
[2022-01-04 12:00] VITALS: BP 124/84
[2022-01-04 16:00] VITALS: BP 120/72
[2022-01-04] MEDS ORDERED: LACTULOSE 20G/30ML UDC PO NR (19:15)
[2022-01-04 20:00] VITALS: BP 104/59
[2022-01-05] VITALS: BP 96/49
[2022-01-05 04:00] VITALS: BP 96/52
[2022-01-05] MEDS: DEMECLOCYCLINE HCL 300MG TABLET PO SCH ×2 (05:11→18:23)
[2022-01-05] MEDS: DOCUSATE SODIUM 100MG CAPSULE PO PRN (05:56)
[2022-01-05] MEDS ORDERED: LACTULOSE 20G/30ML UDC PO SCH (06:15)
[2022-01-05 08:00] VITALS: BP 103/63
[2022-01-05] MEDS: SODIUM HYPOCHLORITE (0.25%) 480ML SOLUTION (HALF STRENGTH) TOP SCH (09:00)
[2022-01-05] MEDS: DOCUSATE SODIUM 250MG CAPSULE PO SCH (09:38)
[2022-01-05] MEDS: ASCORBIC ACID 500 MG TABLET PO SCH (09:38)
[2022-01-05] MEDS: FERROUS SULFATE 325MG TABLET PO SCH (09:38)
[2022-01-05] MEDS: FUROSEMIDE 40MG TABLET PO SCH (09:38)
[2022-01-05] MEDS: ENOXAPARIN 150MG/ML SYR SUBCUT SCH ×2 (09:38→21:21)
[2022-01-05] MEDS: POTASSIUM-SODIUM PHOSPHATE POWDER PACKET PO SCH ×2 (09:39→18:23)
[2022-01-05 12:25] VITALS: BP 109/66
[2022-01-05 16:00] VITALS: BP 95/64
[2022-01-05 17:56] LABS: BASOPHILS % 1.3 % (0.0-2.0); EOSINOPHILS % 0.6 % (0.0-5.0); HEMATOCRIT. 35.2 % (42.0-52.0); LYMPHOCYTES % 23.5 % (20.0-50.0); MEAN CORPUSCULAR HEMOGLOBIN 26.6 pg (28.0-32.0); MEAN CORPUSCULAR VOLUME 84.9 fL (80.0-94.0); MONOCYTES % 8.7 % (2.0-8.0); NEUTROPHILS % 65.9 % (40.0-76.0); PLATELET 114 x1000/uL (130-400); RED BLOOD CELL COUNT 4.15 mill/uL (4.7-6.1); RED CELL DISTRIBUTION WIDTH 26.4 % (11.6-14.6)
[2022-01-05 18:17] LABS: CHLORIDE 95 mEq/L (98-107)
[2022-01-05 18:22] LABS: PHOSPHORUS 4.1 mg/dL (2.5-4.9)
[2022-01-05 20:00] VITALS: BP 92/55
[2022-01-05] MEDS: ACETAMINOPHEN 325MG TABLET PO PRN (21:45)
[2022-01-05] MEDS ORDERED: ZOLPIDEM TARTRATE 5MG TABLET PO PRN (21:45)
[2022-01-06] VITALS: BP 99/56
[2022-01-06 04:00] VITALS: BP 92/66
[2022-01-06] MEDS: DEMECLOCYCLINE HCL 300MG TABLET PO SCH (05:14)
[2022-01-06 08:00] VITALS: BP 95/60
[2022-01-06] MEDS: SODIUM HYPOCHLORITE (0.25%) 480ML SOLUTION (HALF STRENGTH) TOP SCH (09:46)
[2022-01-06] MEDS: ASCORBIC ACID 500 MG TABLET PO SCH (09:47)
[2022-01-06] MEDS: FUROSEMIDE 40MG TABLET PO SCH (09:47)
[2022-01-06] MEDS: POTASSIUM-SODIUM PHOSPHATE POWDER PACKET PO SCH ×2 (09:47→16:29)
[2022-01-06] MEDS: ENOXAPARIN 150MG/ML SYR SUBCUT SCH ×2 (09:47→21:00)
[2022-01-06] MEDS: DOCUSATE SODIUM 100MG CAPSULE PO PRN (09:47)
[2022-01-06] MEDS: FERROUS SULFATE 325MG TABLET PO SCH (09:54)
[2022-01-06] MEDS: DOCUSATE SODIUM 250MG CAPSULE PO SCH (09:54)
[2022-01-06 10:15] LABS: CHLORIDE 92 mEq/L (98-107)
[2022-01-06 10:16] LABS: BASOPHILS % 1.2 % (0.0-2.0); EOSINOPHILS % 0.8 % (0.0-5.0); HEMATOCRIT. 34.5 % (42.0-52.0); HEMOGLOBIN. 10.9 g/dL (14.0-18.0); LYMPHOCYTES % 24.4 % (20.0-50.0); MEAN CORPUSCULAR HEMOGLOBIN 26.2 pg (28.0-32.0); MEAN CORPUSCULAR VOLUME 83.3 fL (80.0-94.0); MEAN PLATELET VOLUME 11.3 fl (7.4-10.4); MONOCYTES % 8.7 % (2.0-8.0); NEUTROPHILS % 64.9 % (40.0-76.0); PLATELET 119 x1000/uL (130-400); RED BLOOD CELL COUNT 4.14 mill/uL (4.7-6.1); RED CELL DISTRIBUTION WIDTH 26.3 % (11.6-14.6)
[2022-01-06 10:20] LABS: PHOSPHORUS 4.3 mg/dL (2.5-4.9)
[2022-01-06 16:18] VITALS: BP 90/60
[2022-01-06 20:00] VITALS: BP 98/71
[2022-01-07] VITALS: BP 96/56
[2022-01-07 04:00] VITALS: BP 104/78
[2022-01-07 08:00] VITALS: BP 105/60
[2022-01-07] MEDS: ENOXAPARIN 150MG/ML SYR SUBCUT SCH ×2 (09:00→21:00)
[2022-01-07] MEDS: ASCORBIC ACID 500 MG TABLET PO SCH (09:06)
[2022-01-07] MEDS: POTASSIUM-SODIUM PHOSPHATE POWDER PACKET PO SCH ×2 (09:06→17:45)
[2022-01-07] MEDS: DOCUSATE SODIUM 250MG CAPSULE PO SCH (09:06)
[2022-01-07] MEDS: FUROSEMIDE 40MG TABLET PO SCH (09:06)
[2022-01-07] MEDS: FERROUS SULFATE 325MG TABLET PO SCH (09:06)
[2022-01-07] MEDS: SODIUM HYPOCHLORITE (0.25%) 480ML SOLUTION (HALF STRENGTH) TOP SCH (09:07)
[2022-01-07 12:00] VITALS: BP 119/61
[2022-01-07 16:00] VITALS: BP 120/64
[2022-01-07 20:00] VITALS: BP 106/89
[2022-01-08] VITALS: BP 121/70
[2022-01-08 04:00] VITALS: BP 112/64
[2022-01-08 08:00] VITALS: BP 122/56
[2022-01-08] MEDS: ENOXAPARIN 150MG/ML SYR SUBCUT SCH ×2 (09:00→21:00)
[2022-01-08] MEDS: ASCORBIC ACID 500 MG TABLET PO SCH (09:29)
[2022-01-08] MEDS: FERROUS SULFATE 325MG TABLET PO SCH (09:29)
[2022-01-08] MEDS: DOCUSATE SODIUM 250MG CAPSULE PO SCH (09:29)
[2022-01-08] MEDS: SODIUM HYPOCHLORITE (0.25%) 480ML SOLUTION (HALF STRENGTH) TOP SCH (09:30)
[2022-01-08] MEDS: POTASSIUM-SODIUM PHOSPHATE POWDER PACKET PO SCH ×2 (09:30→17:37)
[2022-01-08 12:00] VITALS: BP 106/66
[2022-01-08 16:00] VITALS: BP 96/64
[2022-01-08 20:00] VITALS: BP 94/63
[2022-01-09] VITALS: BP 93/64
[2022-01-09 04:00] VITALS: BP 105/69
[2022-01-09 08:00] VITALS: BP 98/62
[2022-01-09] MEDS: ENOXAPARIN 150MG/ML SYR SUBCUT SCH ×2 (09:00→23:43)
[2022-01-09] MEDS: ASCORBIC ACID 500 MG TABLET PO SCH (09:34)
[2022-01-09] MEDS: DOCUSATE SODIUM 250MG CAPSULE PO SCH (09:34)
[2022-01-09] MEDS: SODIUM HYPOCHLORITE (0.25%) 480ML SOLUTION (HALF STRENGTH) TOP SCH (09:34)
[2022-01-09] MEDS: FERROUS SULFATE 325MG TABLET PO SCH (09:34)
[2022-01-09] MEDS: POTASSIUM-SODIUM PHOSPHATE POWDER PACKET PO SCH ×2 (09:35→16:59)
[2022-01-09 10:54] LABS: CHLORIDE 91 mEq/L (98-107)
[2022-01-09 10:56] LABS: BASOPHILS % 1.2 % (0.0-2.0); EOSINOPHILS % 0.5 % (0.0-5.0); HEMATOCRIT. 38.2 % (42.0-52.0); HEMOGLOBIN. 11.9 g/dL (14.0-18.0); LYMPHOCYTES % 22.6 % (20.0-50.0); MEAN CORPUSCULAR HEMOGLOBIN 26.3 pg (28.0-32.0); MEAN CORPUSCULAR VOLUME 84.5 fL (80.0-94.0); MEAN PLATELET VOLUME 12.2 fl (7.4-10.4); MONOCYTES % 6.1 % (2.0-8.0); NEUTROPHILS % 69.6 % (40.0-76.0); PLATELET 128 x1000/uL (130-400); RED BLOOD CELL COUNT 4.52 mill/uL (4.7-6.1); RED CELL DISTRIBUTION WIDTH 26.4 % (11.6-14.6)
[2022-01-09 11:00] LABS: PHOSPHORUS 4.6 mg/dL (2.5-4.9)
[2022-01-09 12:00] VITALS: BP 91/58
[2022-01-09] MEDS ORDERED: POTASSIUM CHLORIDE 20MEQ TABLET SR PO NR (13:00)
[2022-01-09] MEDS ORDERED: FUROSEMIDE 40MG TABLET PO SCH (14:00)
[2022-01-09 16:00] VITALS: BP 101/53
[2022-01-09 20:00] VITALS: BP 101/72
[2022-01-09] MEDS ORDERED: FUROSEMIDE 40MG/4 ML UDC PO SCH (21:00)
[2022-01-10] VITALS (7 sets, daily range): BP systolic 92–118; BP diastolic 56–93
[2022-01-10] MEDS ORDERED: ZOLPIDEM TARTRATE 5MG TABLET PO PRN (10:45)
[2022-01-10] MEDS ORDERED: SENNOSIDES 8.6MG TABLET PO PRN (10:45)
[2022-01-10] MEDS: FUROSEMIDE 40MG TABLET PO SCH (11:00)
[2022-01-10] MEDS: ENOXAPARIN 150MG/ML SYR SUBCUT SCH ×2 (11:00→21:00)
[2022-01-10] MEDS: ASCORBIC ACID 500 MG TABLET PO SCH (12:03)
[2022-01-10] MEDS: POTASSIUM-SODIUM PHOSPHATE POWDER PACKET PO SCH ×2 (12:03→22:17)
[2022-01-10] MEDS: SODIUM HYPOCHLORITE (0.25%) 480ML SOLUTION (HALF STRENGTH) TOP SCH (12:04)
[2022-01-10] MEDS: DOCUSATE SODIUM 250MG CAPSULE PO SCH (12:04)
[2022-01-10] MEDS: FERROUS SULFATE 325MG TABLET PO SCH (12:04)
[2022-01-11] VITALS: BP 115/64
[2022-01-11 04:00] VITALS: BP 92/42
[2022-01-11] MEDS: ENOXAPARIN 150MG/ML SYR SUBCUT SCH (09:00)
[2022-01-11 10:31] VITALS: BP 109/58
[2022-01-11] MEDS: SODIUM HYPOCHLORITE (0.25%) 480ML SOLUTION (HALF STRENGTH) TOP SCH (11:13)
[2022-01-11] MEDS: POTASSIUM-SODIUM PHOSPHATE POWDER PACKET PO SCH (11:13)
[2022-01-11] MEDS: FERROUS SULFATE 325MG TABLET PO SCH (11:20)
[2022-01-11] MEDS: FUROSEMIDE 40MG TABLET PO SCH (11:20)
[2022-01-11] MEDS: DOCUSATE SODIUM 250MG CAPSULE PO SCH (11:20)
[2022-01-11] MEDS ORDERED: POTASSIUM CHLORIDE 20MEQ/PACKET PO NR (13:00)
[2022-01-11] MEDS ORDERED: POTA-79 MT (13:21)
[2022-01-11] MEDS ORDERED: FURO80TA3 MT (13:21)
[2022-01-11] MEDS ORDERED: CARV3.1242 MT (13:21)
[2022-01-11] MEDS ORDERED: LISI2.5T47 MT (13:21)
== END 2022-01-11 12:30 | disposition home health service (06) | DRG 710 ==
LOC: ER 11:53 → 5WST 18:40 → EDBEDREQ 18:42 → EDBEDREQSVC 18:42 → EDBEDREQTM 18:42 → ENRESERV 21:31 → 6WST 12-27 12:39 → 6EST 12-31 01:20
PROVIDERS: ADMIT Internal Medicine; ATTEND Internal Medicine
PROC: 05H433Z Insertion of Infusion Device into Left Innominate Vein, Percutaneous Approach (ICD-10-PCS; 2021-12-13)
PROC: B54NZZA Ultrasonography of Left Upper Extremity Veins, Guidance (ICD-10-PCS; 2021-12-13)
PROC: 5A09557 Assistance with Respiratory Ventilation, Greater than 96 Consecutive Hours, Continuous Positive Airway Pressure (ICD-10-PCS; 2021-12-13)
PROC: 0JBR0ZZ Excision of Left Foot Subcutaneous Tissue and Fascia, Open Approach (ICD-10-PCS; principal; 2021-12-22)
PROC: 0KBV0ZZ Excision of Right Foot Muscle, Open Approach (ICD-10-PCS; 2021-12-22)
PROC: 0JBN0ZZ Excision of Right Lower Leg Subcutaneous Tissue and Fascia, Open Approach (ICD-10-PCS; 2021-12-22)
PROC: 0JBP0ZZ Excision of Left Lower Leg Subcutaneous Tissue and Fascia, Open Approach (ICD-10-PCS; 2021-12-22)
DX: A41.9 Sepsis, unspecified organism (principal); J96.01 Acute respiratory failure with hypoxia; I50.43 Acute on chronic combined systolic (congestive) and diastolic (congestive) heart failure; E43 Unspecified severe protein-calorie malnutrition; I82.432 Acute embolism and thrombosis of left popliteal vein; D63.8 Anemia in other chronic diseases classified elsewhere; I50.82 Biventricular heart failure; J18.9 Pneumonia, unspecified organism; I26.93 Single subsegmental thrombotic pulmonary embolism without acute cor pulmonale; E87.1 Hypo-osmolality and hyponatremia; E88.09 Other disorders of plasma-protein metabolism, not elsewhere classified; I89.0 Lymphedema, not elsewhere classified; E11.621 Type 2 diabetes mellitus with foot ulcer; F25.9 Schizoaffective disorder, unspecified; F31.9 Bipolar disorder, unspecified; J44.0 Chronic obstructive pulmonary disease with (acute) lower respiratory infection; L97.519 Non-pressure chronic ulcer of other part of right foot with unspecified severity; E87.5 Hyperkalemia; R74.01 Elevation of levels of liver transaminase levels; G47.33 Obstructive sleep apnea (adult) (pediatric); D50.9 Iron deficiency anemia, unspecified; K70.9 Alcoholic liver disease, unspecified; K76.0 Fatty (change of) liver, not elsewhere classified; N39.0 Urinary tract infection, site not specified; F17.210 Nicotine dependence, cigarettes, uncomplicated; Z20.822 Contact with and (suspected) exposure to COVID-19; L97.529 Non-pressure chronic ulcer of other part of left foot with unspecified severity; F10.10 Alcohol abuse, uncomplicated; Y90.9 Presence of alcohol in blood, level not specified; E66.01 Morbid (severe) obesity due to excess calories; I34.0 Nonrheumatic mitral (valve) insufficiency; I13.2 Hypertensive heart and chronic kidney disease with heart failure and with stage 5 chronic kidney disease, or end stage renal disease; N18.6 End stage renal disease; E11.22 Type 2 diabetes mellitus with diabetic chronic kidney disease; Z79.899 Other long term (current) drug therapy; Z82.49 Family history of ischemic heart disease and other diseases of the circulatory system; Z68.41 Body mass index [BMI] 40.0-44.9, adult; Z86.16 Personal history of COVID-19; Z99.2 Dependence on renal dialysis
CPT/HCPCS: 36415; 36600; 71045; 71275; 74177; 76700; 76705; 76937; 78580; 80048; 80053; 80061; 80076; 80305; 81003; 82140; 82248; 82375; 82533; 82570; 82607; 82728; 82746; 82805; 82962; 83010; 83036; 83540; 83550; 83605; 83615; 83735; 83880; 83935; 84100; 84145; 84300; 84439; 84443; 84480; 84484; 84550; 85025; 85044; 85651; 86140; 86705; 86709; 86803; 87340; 87389; 87426; 93005; 93306; 93923; 93970; 94640; 94660; 97162; 99291; C1725; C1893; J0696; J1650; J1940; J3370; J3475; J3490; J7030; J7040; J7060; J7131; Q9967

== ENCOUNTER 2022-03-30 15:16 | Emergency (ER) | payer OTHER ==
[~2022-03-30] VITALS: Ht 170.2 cm; Wt 92.0 kg
[~2022-03-30 15:16] MED LIST changes: +CARV3.1242 MT; +FURO80TA3 MT; +LISI2.5T47 MT; +POTA-79 MT
[2022-03-30 16:01] VITALS: BP 88/48
[2022-03-30] MEDS: VANCOMYCIN 1G PREMIX 200 ML IV ONE ×2 (16:13→16:43)
[2022-03-30] MEDS: PIPERACILLIN/TAZ 3.375G PREMIX 50 ML IV ONE ×2 (16:13→16:43)
[2022-03-30] MEDS: SODIUM CHLORIDE 0.9% 1000ML BAG (SEPSIS BOLUS) IV ONE ×2 (16:14→16:43)
[2022-03-30 16:25] LABS: CHLORIDE 88 mEq/L (98-107)
[2022-03-30 16:30] LABS: BASOPHILS % 0.5 % (0.0-2.0); EOSINOPHILS % 0.3 % (0.0-5.0); HEMATOCRIT. 21.8 % (42.0-52.0); HEMOGLOBIN. 7.1 g/dL (14.0-18.0); LYMPHOCYTES % 9.4 % (20.0-50.0); MEAN CORPUSCULAR HEMOGLOBIN 29.3 pg (28.0-32.0); MEAN CORPUSCULAR VOLUME 89.8 fL (80.0-94.0); MEAN PLATELET VOLUME 9.6 fl (7.4-10.4); MONOCYTES % 8.1 % (2.0-8.0); NEUTROPHILS % 81.7 % (40.0-76.0); PLATELET 187 x1000/uL (130-400); RED BLOOD CELL COUNT 2.43 mill/uL (4.7-6.1); RED CELL DISTRIBUTION WIDTH 22.4 % (11.6-14.6)
[2022-03-30 18:49] LABS: PLATELET ESTIMATE NORMAL
== END 2022-03-30 16:46 | disposition left against medical advice (07) ==
LOC: ER 15:16
DX: R42 Dizziness and giddiness (principal); I95.9 Hypotension, unspecified; R65.21 Severe sepsis with septic shock; I11.0 Hypertensive heart disease with heart failure; I50.9 Heart failure, unspecified; E11.649 Type 2 diabetes mellitus with hypoglycemia without coma; Z59.00 Homelessness unspecified; Z91.14 Patient's other noncompliance with medication regimen
CPT/HCPCS: 36415; 71045; 80053; 83605; 83880; 84145; 84484; 85025; 87040; 93005; 99285; J3370; J7030; J2543

== ENCOUNTER 2022-04-02 01:19 | Emergency (ER) | payer OTHER ==
[~2022-04-02] VITALS: Ht 170.2 cm; Wt 73.0 kg
[2022-04-02 08:08] LABS: BASOPHILS % 0.5 % (0.0-2.0); EOSINOPHILS % 0.2 % (0.0-5.0); HEMATOCRIT. 26.4 % (42.0-52.0); HEMOGLOBIN. 8.5 g/dL (14.0-18.0); LYMPHOCYTES % 11.4 % (20.0-50.0); MEAN CORPUSCULAR HEMOGLOBIN 29.2 pg (28.0-32.0); MEAN CORPUSCULAR VOLUME 90.6 fL (80.0-94.0); MEAN PLATELET VOLUME 9.6 fl (7.4-10.4); MONOCYTES % 9.1 % (2.0-8.0); NEUTROPHILS % 78.8 % (40.0-76.0); PLATELET 163 x1000/uL (130-400); RED BLOOD CELL COUNT 2.92 mill/uL (4.7-6.1); RED CELL DISTRIBUTION WIDTH 20.5 % (11.6-14.6)
[2022-04-02 08:12] LABS: CHLORIDE 90 mEq/L (98-107)
[2022-04-02] MEDS ORDERED: FUROSEMIDE 40MG/4ML VIAL IVP ONE (09:00)
[2022-04-02 09:10] VITALS: BP 95/63
== END 2022-04-02 09:53 | disposition home or self-care (01) ==
LOC: ER 01:19 → CANBEDREQ 21:33
DX: I11.0 Hypertensive heart disease with heart failure (principal); I50.9 Heart failure, unspecified; Z20.822 Contact with and (suspected) exposure to COVID-19
CPT/HCPCS: 36415; 71045; 80053; 83880; 84484; 85025; 87426; 93005; 96374; 99285; C9803; J1940